=== PATIENT | female | born 1975 | race African-American/Black ===

== ENCOUNTER 2022-01-10 10:17 | Emergency (ER) | payer BC, SELFPAY ==
[2022-01-10 10:31] VITALS: BP 137/102; PULSE 99; RESP 18; TEMP 36.4; O2SAT 100
[2022-01-10 10:35] VITALS: BP 137/102; PULSE 99; RESP 18; TEMP 36.4; O2SAT 100
--- NOTE | 2022-01-10 10:56 | ED.URI ---
HPI - URI/Sore Throat General Chief Complaint: Upper Respiratory Infection Stated Complaint: uri Time Seen by Provider: 01/10/22 10:56 Source: patient, RN notes reviewed and old records reviewed Mode of arrival: ambulatory Limitations: no limitations History of Present Illness HPI Narrative: 46 year old female who presents to [facility] care with complaints of 4 days cough with some shortness of breath, ears feel clogged, sinus congestion and feels weak with her right eye is red and watering.Patient reports that she has history of sinus problem and has been taking Claritin, Flonase, and Mucinex DM, she states also that she has been taking Sudafed, and Equate cough pills. She reports that she has been COVID vaccinated and also has had flu shot last fall. Patient denies any nausea or vomiting or any diarrhea. MD elicited complaint: cough and sore throat Onset (ago): day(s) (4) Treatments prior to arrival: cold medicine and other (flonase and Mucinex DM) Related Data Home Medications Medication Instructions Recorded Confirmed amitriptyline 25 mg tablet 25 mg PO DAILY 01/10/22 01/10/22 cyclobenzaprine 5 mg tablet 5 mg PO DAILY 01/10/22 01/10/22 losartan 100 1 tablet PO DAILY 01/10/22 01/10/22 mg-hydrochlorothiazide 25 mg tablet simvastatin 20 mg tablet 20 mg PO DAILY 01/10/22 01/10/22 tirzepatide 5 mg/0.5 mL 5 mg subcut WEEKLY 01/10/22 01/10/22 subcutaneous pen injector (Nohemy) Allergies Allergy/AdvReac Type Severity Reaction Status Date / Time Sulfa (Sulfonamide Allergy Intermediate Hives Verified 01/10/22 11:00 Antibiotics) gadobenic acid AdvReac Mild Nausea Verified 01/10/22 11:00 [From contrast - MRI] iohexol AdvReac Mild Nausea Verified 01/10/22 11:00 [From contrast - CT, X-RAY] Review of Systems Review of Systems: CONSTITUTIONAL: Reports malaise, chills, sweats, or fever. EYES: Denies visual changes, redness, matting and excessive watering right eye ENT: Reports rhinorrhea, congestion, sinus pain,some otalgia and sore throat. CARDIOVASCULAR: Denies chest pain, palpitations, or edema. RESPIRATORY: Reports cough.reports some dyspnea with cough no asthma history.. GASTROINTESTINAL: Denies abdominal pain, nausea, vomiting, diarrhea SKIN: Denies rash or itching. MUSCULOSKELETAL: Denies myalgia. NEUROLOGIC: Denies headache. All systems reviewed & are unremarkable except as noted in HPI and below PMFSH Past Medical History Medical History (Updated 01/11/22 @ 00:00 by Kobe Villatoro) Diabetes Hyperlipidemia Hypertension Surgical History Surgical History (Updated 01/10/22 @ 11:39 by Ingrid Salcedo NP) H/O right knee surgery surgery to nerve to right knee Social History Social History (Updated 01/10/22 @ 10:58 by Ingrid Salcedo NP) Living arrangements: with family Gender identity (if verbalized by the patient): Female Comments At time of signature, agree with nursing past medical, surgical, social and family history. There is no relevant family history pertinent to the presenting complaint Exam Narrative: GENERAL: Well-appearing, well-nourished, and in no acute distress. HEAD: Normocephalic EYES: PERRLA, conjunctivae clear some sclera redness and increased watering right eye ENT: Nares clear, turbinates edematous and erythematous, clear discharge. Mucous membranes moist. TM pearly montano with dull light reflex bilaterally; no tragal tenderness. Oropharynx erythematous without lesions. Tonsils not enlarged and without exudate, no drooling, no hoarseness, no trismus, uvula midline. NECK: Supple. No lymphadenopathy CHEST: Decreased to auscultation, breath sounds equal. No wheezing, rhonchi, rales, or stridor. No respiratory distress, speaks in full sentences.SAO2 100% on room air, cough noted. HEART: Regular rate and rhythm. No murmur heard. SKIN: Warm, dry, no rash. NEURO: Alert and oriented x3. PSYCH: Normal mood and affect Course Cour
== END 2022-01-10 11:58 | disposition home or self-care (01) ==
PROVIDERS: Emergency Provider Registered Nurse
DX: J10.1 Influenza due to other identified influenza virus with other respiratory manifestations (principal); H57.11 Ocular pain, right eye; Z20.822 Contact with and (suspected) exposure to COVID-19; E11.9 Type 2 diabetes mellitus without complications; E78.5 Hyperlipidemia, unspecified; I10 Essential (primary) hypertension
CPT/HCPCS: 87426; 87804; 87880; 99203; C9803; G0463